=== PATIENT | male | born 2000 | race Hispanic/Latino ===

== ENCOUNTER 2020-08-22 10:40 | Emergency (ER) | payer OTHER ==
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
[2020-08-22] MEDS ORDERED: LIDOCAINE 1% MPF 5 ML VIAL ONE (11:45)
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
[2020-08-22 13:27] VITALS: TEMP 98.5
[2020-08-22 13:29] VITALS: BP 115/83; O2SAT 97
--- NOTE | 2020-08-22 13:47 | RAD REPORT ---
EXAM DESCRIPTION: RAD - Nasal Bones - 08/22/2020 1:41 pm CLINICAL HISTORY: Nasal pain FINDINGS: There are 2 nondisplaced nasal bone fractures.
== END 2020-08-22 13:12 ==
LOC: ER 10:40
PROC: 0JQ10ZZ Repair Face Subcutaneous Tissue and Fascia, Open Approach (ICD-10-PCS; principal; 2020-08-22)
DX: S01.81XA Laceration without foreign body of other part of head, initial encounter (principal); S02.2XXA Fracture of nasal bones, initial encounter for closed fracture; Y04.2XXA Assault by strike against or bumped into by another person, initial encounter; Y93.9 Activity, unspecified; Y92.149 Unspecified place in prison as the place of occurrence of the external cause; Y99.8 Other external cause status
CPT/HCPCS: 70160; 70450; 99284